=== PATIENT | female | born 1980 | race Caucasian/White ===

== ENCOUNTER 2016-07-12 05:58 | Inpatient (IN) | payer OTHER ==
[~2016-07-12] VITALS: Ht 180.3 cm; Wt 107.0 kg
[~2016-07-12 05:58] MED LIST: LEVOTHYROXINE200 MC1 PO; PRENATAL TABLE1 EAC2 PO; SYNTHROID300 MCG PO
[2016-07-12 06:23] VITALS: BP 126/74
--- NOTE | 2016-07-12 07:56 | History & Physical ---
General Information and HPI MD Statement: I have seen and personally examined ELIJAH MITCHELL and documented this H&P. The patient is a 36 year old female at39 [] weeks and [] days gestation who presented with a chief complaint of []. Multiparity and 2 previous C-sections History of Present Illness: 35-year-old 3 para 2001 at 39 weeks 2 previous C-sections once demand sterilization for repeat section care started with Dr. 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 Medical History Neurological: migraine EENT: NONE Cardiovascular: NONE Respiratory: NONE Gastrointestinal: NONE Hepatic: cholelithiasis Renal: NONE Musculoskeletal: NONE Psychiatric: NONE Endocrine: hypothyroidism Blood Disorders: NONE Cancer(s): NONE 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[employer] TROLLEY/Reproductive: NONE Surgical History Pertinent Surgical History: non-contributory, N Past Family/Social History Psychosocial History Smoking Status: Never Smoked Review of Systems Review of Systems: Negative review of systems as stated in the HPI Exam & Diagnostic Data Last 24 Hrs of Vital Signs/I&O Vital Signs Date Time Temp Pulse Resp B/P Pulse O2 O2 Flow FiO2 Ox Delivery Rate 07/12 0623 126/74 Intake & Output 07/12 0800 07/12 0000 07/11 1600 Intake Total Output Total Balance Patient 236 lb Weight Obstetric Exam Wgt Gained During : 24 pounds Pelvimetry: Untested Dilation (cm): 0 Effacement (%): 0 Station: 0 Membranes: intact Fluid: unknown Fundal Height (cm): 39 Multiple Gestation? No Contractions: None Patient for Induction? No Labs Blood Type & Rh: A positive Antibody Screen: Negative Hct/Hgb & Platelets #1: 12/14 Hct/Hgb & Platelets #2: Non- Rubella: Immune VDRL #1: Nonreactive VDRL #2: Non- HbsAg: Negative HIV #1: Unknown HIV #2 Negative 1 Hr P Group B Strep: Negative Initial Ultrasound: Normal Anatomy Ultrasound: Normal Genetic Testing: normal Last 24 Hrs of Labs/Samy: Microbiology 07/12 0614 URINE ROUT: Urine Culture - COLB Assessment/Plan As Ranked By This Provider Problem List: 1. Core Measures/Miscellaneous Venous Thromboembolism VTE Risk Factors: / VTE Contraindications: No Contraindications VTE Diagnosis: No Beta Hernan Is Beta Hernan a Home Med? No Antibiotics Is Patient on Antibiotics? No
[2016-07-13 07:54] LABS: ABSOLUTE BASOPHIL COUNT 0 /CUMM (0.0-0.2); ABSOLUTE EOSINOPHIL COUNT 0.4 /CUMM (0.0-0.7); ABSOLUTE GRANULOCYTE CT 4.9 /CUMM (1.4-6.5); ABSOLUTE LYMPH COUNT 1.7 /CUMM (1.2-3.4); ABSOLUTE MONOCYTE COUNT 0.4 /CUMM (0.10-0.60); BASOPHIL % 0.3 % (0.0-2.0); EOSINOPHIL % 4.9 % (0-5); HEMATOCRIT 26.8 % (37-47); MEAN CORPUSCULAR HGB 25.2 PG (27.0-31.0); MEAN CORPUSCULAR HGB CONC 32.7 G/DL (33.0-37.0); MEAN CORPUSCULAR VOLUME 76.9 FL (81.0-99.0); MEAN PLATELET VOLUME 8.5 FL (7.4-10.4); PLATELET COUNT 246 /CUMM (130-400); RBC DISTRIBUTION WIDTH 14.9 % (11.5-14.5); RED BLOOD CELL CT 3.48 /CUMM (4.20-5.40); WHITE BLOOD CELL COUNT 7.4 /CUMM (4.8-10.8)
--- NOTE | 2016-07-13 10:19 | PN- Post Delivery/GYN ---
Subjective Subjective: Doing well overall. Pain is well controlled with PO meds, ambulating well. Minimal lochia. Good PO intake with no N/V. Shirley was just removed this morning, decreased UOP last evening improved with IV bolus. Now much improved diuresis this morning prior to shirley removal. with no problems. Incision bandage removed this morning. Patient only complaint of generalized swelling with no pain or focalized erythema. Noted pre-op transfusion given anemia. No lightheadedness or dizziness. Review of Systems: per above Objective Last 24 Hrs of Vital Signs/I&O 97.5 58 18 110/70 97% Physical Exam: Gen: NAD Heart: RRR. S1 and S2 Lungs: CTAB Abd: Minimal expected TTP. Fundus well below umbilicus. Incision: C/D/I with jocy in place. Ext: Generalized 2+ edema. No erythema, pain or cords Current Medications: Current Medications Sig/Mo Start time Last Medication Dose Route Stop Time Status Admin Acetaminophen 650 MG Q4P PRN 07/12 08 AC PO Cefazolin Sodium 2 GM ONCE ONE 07/12 1015 DC 07/12 N/A 1 UNIT IV 07/12 1044 0740 Diphenhydramine HCl 25 MG Q6P PRN 07/12 0930 AC 07/12 IV 2150 Docusate Sodium 100 MG AT BEDTIME PRN 07/12 08 AC PO Enoxaparin Sodium 40 MG 07/12 AC 07/12 SC 1948 Ferrous Sulfate 325 MG DAILY 07/13 1030 UNVr PO Hydroxyzine HCl 50 MG AT BEDTIME NEED.. 07/13 0000 AC PO 07/16 0001 Ibuprofen 800 MG Q6P PRN 07/12 0800 AC 07/13 PO 0914 Ketorolac 30 MG Q6P PRN 07/12 1415 AC 07/13 Tromethamine IV 07/13 1414 0247 Lactated Ringer's 1,000 ML Q8H 07/12 0800 AC 07/12 IV 1626 Levothyroxine Sodium 0.2 MG AT BEDTIME 07/13 2200 UNVr PO Magnesium Hydroxide 30 ML DAILY NEEDED PRN 07/12 0800 AC PO 07/15 0801 Metoclopramide HCl 10 MG Q6P PRN 07/12 0930 AC IV Naloxone HCl 0.2 MG .Q5MIN PRN 07/12 0930 AC IV Oxycodone/ 1 TAB Q4P PRN 07/12 08 AC 07/13 Acetaminophen PO 08 Oxycodone/ 2 TAB Q4P PRN 07/12 08 AC Acetaminophen PO Oxytocin 20 UNITS Q8H 07/13 799 DC 07/12 Lactated Ringer's 1,000 ML IV 07/12 1559 0900 Senna 187 MG AT BEDTIME NEED.. 07/12 08 AC PO Last 24 Hrs of Labs/Samy: Laboratory Tests 07/13/16 0700: CBC w Diff NO MAN DIFF REQ, RBC 3.48 L, MCV 76.9 L, MCH 25.2 L, RDW 14.9 H, MPV 8.5, Gran % 66.0, Lymphocytes % 22.9, Monocytes % 5.9, Eosinophils % 4.9, Basophils % 0.3, Absolute Granulocytes 4.9, Absolute Lymphocytes 1.7, Absolute Monocytes 0.4, Absolute Eosinophils 0.4, Absolute Basophils 0, PUBS MCHC 32.7 L Assessment/Plan Assessment/Plan 36 yo female POD#1 s/p rLTCS with BTL s/p preop transfusion of 2 units of pRBC 1) POD#1 - Overall doing very well - Continue pain control PRN with PO meds - Continue to ambulate - Full diet - Continue to monitor UOP closely and ensure diuresis - Rh + 2) Hypothyroidism - On synthroid 200mcg nightly - Continue nightly medication - No acute symptoms 3) Anemia - Preop transfusion of 2 units - H/H per above - Asymptomatic - Iron PO in AM 4) Prophx - Lovenox 40 daily - Ambulation - IS encouraged Attending Review Statement Attending Statement Attending MD Statement: examined this patient, reviewed EMR data (avail), discussed with nursing
--- NOTE | 2016-07-14 09:57 | PN- Post Delivery/GYN ---
Subjective Subjective: Doing well overall. Pain is well controlled with PO meds, did have some trouble with pain control overnight, however as long as remembers to ask for medication, it does help. Ambulating well. Minimal lochia. Good PO intake with no N/V. Swelling is improved. Voiding well. + flatus, +BM. No lightheadedness or dizziness. Review of Systems: Per above Objective Last 24 Hrs of Vital Signs/I&O 97.7 71 18 120/70 98% Physical Exam: Gen: NAD Heart: RRR. S1 and S2 Lungs: CTAB Abd: Minimal expected TTP. Fundus well below umbilicus. binder in place Incision: C/D/I with jocy in place. Ext: 1+ edema in LE. No erythema, pain or cords Current Medications: Current Medications Sig/Mo Start time Last Medication Dose Route Stop Time Status Admin Acetaminophen 650 MG Q4P PRN 07/12 08 AC PO Diphenhydramine HCl 50 MG AT BEDTIME NEED.. 07/13 2345 AC 07/14 PO 0022 Diphenhydramine HCl 25 MG Q6P PRN 07/12 0930 DC 07/12 IV 2150 Docusate Sodium 100 MG .STK-MED ONE 07/13 2100 DC PO 07/13 2101 Docusate Sodium 100 MG AT BEDTIME PRN 07/12 08 AC 07/13 PO 210 Enoxaparin Sodium 40 MG 07/12 AC 07/13 SC 2059 Ferrous Sulfate 325 MG DAILY 07/13 1030 AC 07/14 PO 0955 Hydroxyzine HCl 50 MG AT BEDTIME NEED.. 07/13 0000 DC PO 07/16 0001 Ibuprofen 800 MG .STK-MED ONE 07/13 2347 DC PO 07/13 2348 Ibuprofen 800 MG .STK-MED ONE 07/13 1811 DC PO 07/13 1812 Ibuprofen 800 MG Q6P PRN 07/12 0800 AC 07/14 PO 0631 Ketorolac 30 MG Q6P PRN 07/12 1415 DC 07/13 Tromethamine IV 07/13 1414 0247 Lactated Ringer's 1,000 ML Q8H 07/12 0800 DC 07/12 IV 1626 Levothyroxine Sodium 0.2 MG AT BEDTIME 07/13 2200 AC 07/13 PO 2058 Magnesium Hydroxide 30 ML DAILY NEEDED PRN 07/13 799 AC PO 07/15 0801 Metoclopramide HCl 10 MG Q6P PRN 07/12 0830 AC IV Naloxone HCl 0.2 MG .Q5MIN PRN 07/12 929 AC IV Oxycodone/ 1 TAB Q4P PRN 07/13 799 AC 07/13 Acetaminophen PO 08 Oxycodone/ 2 TAB Q4P PRN 07/13 799 AC 07/14 Acetaminophen PO 06 Senna 187 MG AT BEDTIME NEED.. 07/13 799 AC PO Assessment/Plan Assessment/Plan 36 yo female POD#2 s/p rLTCS with BTL s/p preop transfusion of 2 units of pRBC 1) POD#2 - Overall doing very well - Continue pain control PRN with PO meds. Encouraged to keep on top of taking medications as this is likely reason for breakthrough pain last night - Continue to ambulate - Full diet - Continue to monitor UOP and vitals - Rh + - Continue encouraging 2) Hypothyroidism ([facility]'s) - On synthroid 200mcg nightly - No acute symptoms 3) Anemia - Preop transfusion of 2 units - Asymptomatic - Iron PO daily (in AM) 4) Prophx - Lovenox 40 daily - Ambulation - IS encouraged Anticipate discharge on POD#3 Attending MD Review Statement Attending Statement Attending MD Statement: examined this patient, discussed with family, discussed with nursing
[2016-07-15] MEDS ORDERED: PERCOCET 5-3251 EACH PO (11:12)
[2016-07-15] MEDS ORDERED: FERROUS SULFAT325 M2 PO (11:12)
[2016-07-15] MEDS ORDERED: IBUPROFEN800 M1 PO (11:12)
--- NOTE | 2016-08-08 14:10 | Surgical Discharge Summary ---
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 Kyrgyz Review of Systems: -13 point review of systems is stated in the HPI Hospital Course Course Attending Physician: OSCAR TEE MD Primary Care Physician: SONU SIMMS MD Hospital Course: Patient presents to the hospital for a section she underwent a repeat low flap transverse section and bilateral tubal ligation I she tolerated anesthesia well responded well with her the first postoperative day on the third postoperative day she had a bowel movement she remained afebrile and tolerating oral pain medication and she was discharged home following physical exam pleasant white female HEENT anicteric lungs clear abdomen soft nontender incision clean dry and intact extremities negative edema minimal lochia Allergies: Coded Allergies: No Known Allergies (04/07/16) Disposition Summary Disposition Principal Diagnosis: Size post repeat section Additional Diagnosis: Status post tubal ligation Discharge Disposition: home or self care Discharge Instructions General Discharge Information Code Status: Full Code Patient's Diet: Regular diet Patient's Activity: Pelvic rest for 6 weeks no heavy lifting for 6 weeks with driving for 2 weeks Follow-Up Instructions/Appts: return visit in one week my office in 2 weeks Medications at Discharge Discharge Medications: Continue taking these medications: Levothyroxine Sodium (Levothyroxine Sodium) 200 MCG TABLET 1 Tablet ORAL DAILY Qty = 30 Comments: PER PT Vit No.130/Iron/FA ( Tablet) 27 MG IRON-800 MCG TABLET 1 Tablet ORAL DAILY Comments: PER PT Start taking the following new medications: Ferrous Sulfate (Ferrous Sulfate) 325 MG (65 MG IRON) TABLET.DR 325 Milligram ORAL DAILY Qty = 60 No Refills Comments: Last Taken:07/15/16 Time:1145 Ibuprofen (Ibuprofen) 800 MG TABLET 800 Milligram ORAL EVERY SIX HOURS NEEDED as needed for UTERINE CRAMPING Qty = 60 No Refills Comments: Last Taken:07/15/16 Time:1145 Oxycodone HCl/Acetaminophen (Percocet 5-325 MG Tablet) 5 MG-325 MG TABLET 1 Tablet ORAL EVERY 4 HOURS NEEDED as needed for PAIN SCALE 4-6 (MODERATE ) Qty = 30 No Refills Comments: Last Taken:07/15/16 Time:1147
== END 2016-07-15 13:00 | DRG 540 ==
LOC: GNO 05:58
PROVIDERS: ADMIT Specialist
PROC: 0UB70ZZ Excision of Bilateral Fallopian Tubes, Open Approach (ICD-10-PCS; principal; 2016-07-12)
PROC: 10D00Z1 Extraction of Products of Conception, Low, Open Approach (ICD-10-PCS; principal; 2016-07-12)
PROC: 30233N1 Transfusion of Nonautologous Red Blood Cells into Peripheral Vein, Percutaneous Approach (ICD-10-PCS; 2016-07-12)
DX: O34.211 Maternal care for low transverse scar from previous cesarean delivery (principal); N85.8 Other specified noninflammatory disorders of uterus; Z3A.39 39 weeks gestation of pregnancy; Z37.0 Single live birth; Z30.2 Encounter for sterilization; O99.284 Endocrine, nutritional and metabolic diseases complicating childbirth; E03.9 Hypothyroidism, unspecified; O99.02 Anemia complicating childbirth
CPT/HCPCS: GNOS; 81003; 86920; 87086; 88302; 88307; J0690; J1200; J1650; J1885; J2405; J7120; P9016

== ENCOUNTER 2017-04-30 20:25 | Emergency (ER) | payer OTHER ==
[~2017-04-30] VITALS: Ht 180.3 cm; Wt 99.8 kg
[~2017-04-30 20:25] MED LIST changes: +FERROUS SULFAT325 M2 PO; +IBUPROFEN800 M1 PO; +PERCOCET 5-3251 EACH PO
[2017-04-30 20:32] VITALS: BP 105/71
--- NOTE | 2017-04-30 20:55 | ED EYE COMPLAINT ---
History of Present Illness General Chief Complaint: Eye Problems Stated Complaint: "DAUGHTER SCRATCHED MY EYE" Source: patient, old records Exam Limitations: no limitations Vital Signs & Intake/Output Vital Signs & Intake/Output Vital Signs Date Time Temp Pulse Resp B/P B/P Pulse O2 O2 Flow FiO2 Mean Ox Delivery Rate 04/30 2049 Room Air 04/30 2031 97.0 84 18 105/71 100 Allergies Coded Allergies: No Known Allergies (04/07/16) Reconcile Medications Ferrous Sulfate 325 MG (65 MG IRON) TABLET.DR 325 MG PO DAILY ANEMIA Ibuprofen 800 MG TABLET 800 MG PO Q6P PRN UTERINE CRAMPING Ketorolac Tromethamine (Acular) 0.5 % DROPS 1 GTT OPH 4 TIMES/DAY PRN pain Levothyroxine Sodium 200 MCG TABLET 1 TAB PO DAILY THYROID (Reported) Ondansetron (Zofran Odt) 4 MG TAB.RAPDIS 1 TAB SL TID PRN nausea Oxycodone HCl/Acetaminophen (Percocet 5-325 MG Tablet) 5 MG-325 MG TABLET 1 TAB PO Q4P PRN PAIN SCALE 4-6 (MODERATE) Polytrim (Polytrim Eye Drops) 10,000 UNIT-1 MG/ML DROPS 1 GTT OPH Q6 corneal abrasion Vit No.130/Iron/FA ( Tablet) 27 MG IRON-800 MCG TABLET 1 TAB PO DAILY (Reported) Sumatriptan Succinate (Imitrex) 50 MG TABLET 1 TAB PO AD PRN headache Triage Note: PT TO ER C/C RIGHT EYE PAIN, VISION CHANGES, TEARING X 5 HRS S/P DAUGHTER SCRATCHING HER IN EYE. Triage Nurses Notes Reviewed? yes Onset: Abrupt Duration: hour(s): (4), constant Timing: recent history Injury Environment: home Severity: severe Severity Numbers: 10 No Modifying Factors: none Right Eye Associated Symptoms: burning, itching, pain, sensitivity to light : No Patient currently breastfeeds: Yes HPI: 36-year-old female with history of hypothyroid presents complaining of severe aching throbbing pain to her right eye after her 9-month-old daughter scratch or an MRI while they were taking self ease. She does not wear glasses or contacts. Pain is worse with bright lights. She denies any left eye trauma. No pain with movement of her eyes there is no other facial trauma. She states the pain in her eye is causing her to have a migraine and is requesting a shot of Imitrex which she has had in the past. She reports some blurry vision and tearing however denies vision loss. (Reg Bhatti) Past History Travel History Traveled to [place] past 21 day No Medical History Any Pertinent Medical History? 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 No (Reg Bhatti) Review of Systems Review of Systems Constitutional: Reports: see HPI. All Other Systems: Reviewed and Negative Comments Review of systems: See HPI, All other systems negative. Constitutional, no chills no fever, HEENT: no sore throat no congestion Cardiovascular: No chest pain Skin: no rashes, no change in skin Respiratory: No dyspnea no cough no sputum GI: No nausea no vomiting, Muscle skeletal: No joint pain, no back pain, no neck pain, Neurologic: headache Heme/endocrine: No bruising (Reg Bhatti) Physical Exam General Appearance: well developed/nourished, no apparent distress, alert General Inspection: normal inspection Eyelid: normal inspection Conjunctiva/Sclera: normal inspection Cornea: normal inspection EOM: intact Pupil: normal accommodation, normal pupil, PERRL General Inspection: normal inspection Eyelid: normal inspection, everted for exam Conjunctiva/Sclera: normal inspection Cornea: examined w/fluorescein, abrasion EOM: intact Pupil: normal accommodation, normal pupil, PERRL Physical Exam Comments: Well-developed well-nourished patient in no apparent distress. HEENT: Atraumatic, extraocular motion intact Neck: Supple, FROM Back: FROM Respiratory: No respiratory distress. Patient speaking in full complete sentences. Extremities: full range of motion Neuro: awake, alert, and oriented to person, place and time. There were no obvious focal neurologic abnormalities. Skin: Warm & dry;No appreciable rash on exposed skin Psych: Mood affect normal, normal memory normal judgment. (Reg Bhatti) Progress Differential Diagnosis: corneal abrasion, corneal foreign body, conjunctivitis Plan of Care: Current Medications Sig/Mo Start time Last Medication Dose Stop Time Status Admin Sumatriptan Succinate 6 MG ONE ONE 04/30 2114 AC (Imitrex 6MG Per 04/30 2115 0.5ML Inj) The eye was anesthetized with tetracaine with immediate resolution of symptoms using fluoroscopy seen an abrasion was noted to the cornea of the right eye the eyelids were reverted there is no visualized foreign body. I discussed the patient however the possibility of a foreign body not seen on examination still exist advise close follow-up with her sales broker tomorrow discussed with her plan of care we will give her a shot of Imitrex and sent her home with Acular and Polytrim eyedrops Imitrex and Zofran return precautions were discussed at length she feels comfortable plan. (Reg Bhatti) Departure Departure Time of Disposition: 2110 Disposition: HOME OR SELF CARE Condition: Stable Clinical Impression Primary Impression: Corneal abrasion Qualifiers: Encounter type: initial encounter Laterality: right Qualified Code: S05.01XA - Injury of conjunctiva and corneal abrasion without foreign body, right eye, initial encounter Referrals: Lyudmila KOWALSKI,Radha Goodson (PCP/Family) Additional Instructions: Follow up with your sales broker tomorrow. acular for pain, polytrim as directed. imitrex for headaches, zofran for nausea Departure Forms: Customer Survey General Discharge Information Prescriptions: Current Visit Scripts Sumatriptan Succinate (Imitrex) 1 TAB PO AD PRN headache #9 TAB Ondansetron (Zofran Odt) 1 TAB SL TID PRN nausea #10 TAB Ketorolac Tromethamine (Acular) 1 GTT OPH 4 TIMES/DAY PRN pain #5 ML Polytrim (Polytrim Eye Drops) 1 GTT OPH Q6 #10 ML (Reg Bhatti) PA/GLOVE PRESSER Co-Sign Statement Statement: ED Attending supervision documentation- I saw and evaluated the patient. I have also reviewed all the pertinent lab results and diagnostic results. I agree with the findings and the plan of care as documented in the PA's/GLOVE PRESSER's documentation. x I have reviewed the ED Record and agree with the PA's/GLOVE PRESSER's documentation. [] Additions or exceptions (if any) to the PAs/GLOVE PRESSER's note and plan are summarized below: [] (Oneida KOWALSKI,Avinash)
[2017-04-30] MEDS ORDERED: IMITREX50 M1 PO (21:14)
[2017-04-30] MEDS ORDERED: POLYTRIM EYE DR10 ML OPH (21:14)
[2017-04-30] MEDS ORDERED: ACULAR5 ML OPH (21:14)
[2017-04-30] MEDS ORDERED: ZOFRAN ODT4 M1 SL (21:14)
== END 2017-04-30 21:29 ==
LOC: ERH 20:25
DX: S05.01XA Injury of conjunctiva and corneal abrasion without foreign body, right eye, initial encounter (principal); W51.XXXA Accidental striking against or bumped into by another person, initial encounter; Y93.89 Activity, other specified; Y92.009 Unspecified place in unspecified non-institutional (private) residence as the place of occurrence of the external cause
CPT/HCPCS: 96372; J3030

== ENCOUNTER 2017-11-03 19:48 | Emergency (ER) | payer OTHER ==
[~2017-11-03] VITALS: Ht 180.3 cm; Wt 90.0 kg
[~2017-11-03 19:48] MED LIST changes: +ACULAR5 ML OPH; +IMITREX50 M1 PO; +POLYTRIM EYE DR10 ML OPH; +ZOFRAN ODT4 M1 SL
[2017-11-03 19:53] VITALS: BP 117/74
[2017-11-04] MEDS ORDERED: SYNTHROID50 MCG PO (11:48)
[2017-11-04] MEDS ORDERED: PERCOCET 5-3251 EACH PO ×2 (13:10→14:15)
[2017-11-04] MEDS ORDERED: VIBRAMYCIN100 MG PO ×2 (13:10→14:15)
[2017-11-04] MEDS ORDERED: ZOFRAN4 M2 PO ×2 (13:10→14:15)
== END 2017-11-03 21:46 | disposition admitted as inpatient to this hospital (09) ==
LOC: ERH 19:48
DX: R10.31 Right lower quadrant pain (principal)
CPT/HCPCS: J0131; J2405

== ENCOUNTER 2017-11-04 08:40 | Emergency (ER) | payer OTHER ==
[~2017-11-04] VITALS: Ht 180.3 cm; Wt 89.8 kg
--- NOTE | 2017-11-04 08:57 | ED GENERAL ADULT ---
History of Present Illness General Chief Complaint: Abdominal Pain/Flank Pain Stated Complaint: ABD PAIN Source: patient Exam Limitations: no limitations Vital Signs & Intake/Output Vital Signs & Intake/Output Vital Signs Date Time Temp Pulse Resp B/P B/P Pulse O2 O2 Flow FiO2 Mean Ox Delivery Rate 11/04 1141 97.8 58 18 126/60 100 Room Air Room Air 11/04 0842 96.2 67 18 122/67 98 Room Air Allergies Coded Allergies: No Known Allergies (04/07/16) Reconcile Medications Doxycycline Hyclate (Vibramycin) 100 MG CAPSULE 1 CAP PO BID CERVICITIS Levothyroxine Sodium 200 MCG TABLET 1 TAB PO DAILY AC THYROID (Reported) Levothyroxine Sodium (Synthroid) 50 MCG TABLET 1 TAB PO DAILY AC THYYROID ( Reported) Ondansetron HCl (Zofran) 4 MG TABLET 1 TAB PO Q6-8P NAUSEA Oxycodone HCl/Acetaminophen (Percocet 5-325 MG Tablet) 5 MG-325 MG TABLET 1 TAB PO BID PAIN Triage Note: 37 YO FEAMLE TO TRIAGE FROM URGENT CARE FOR R/O APPY. PT REPORTS SHE HAS HEEB HAVING RLQ PAIN FOR ABOUT A WEEK AND THE PAIN IS NOT CONSISTENT AND GETTING WROSE IN NATURE. REPORTS PAIN OCCASIONALLY RADAITES TO UMBILICUS AREA. DENIES NVD, AFEBRILE. Triage Nurses Notes Reviewed? yes Onset: Abrupt Duration: day(s): Timing: recent history : No Patient currently breastfeeds: No HPI: 11/04/17 8:52 AM 37-year-old female presents to the emergency department with gradual onset of right lower quadrant pain. She states she has progressive onset of severe right lower quadrant pain. She has associated nausea and anorexia. No fever. She was seen in urgent care center and referred to rule out appendicitis. She has a past surgical history of , tubal ligation, and cholecystectomy. She denies any allergies. Past History Travel History Traveled to [place] past 21 day No Medical History Any Pertinent Medical History? see below for history Neurological: migraine EENT: NONE Cardiovascular: NONE Respiratory: NONE Gastrointestinal: NONE Hepatic: cholelithiasis Renal: NONE Musculoskeletal: NONE Psychiatric: NONE Endocrine: hypothyroidism Blood Disorders: NONE Cancer(s): NONE AURICULAR THERAPIST/Reproductive: NONE Surgical History Surgical History: non-contributory, N Psychosocial History What is your primary language Hebrew Tobacco Use: Never used Family History Hx Contributory? No Review of Systems Review of Systems Constitutional: Denies: fever. EENTM: Reports: no symptoms. Respiratory: Denies: short of breath. Cardiovascular: Denies: chest pain. GI: Reports: abdominal pain, nausea. Genitourinary: Reports: no symptoms. Musculoskeletal: Reports: no symptoms. Skin: Reports: no symptoms. Neurological/Psychological: Reports: no symptoms. Hematologic/Endocrine: Reports: no symptoms. Immunologic/Allergic: Reports: no symptoms. Physical Exam Physical Exam General Appearance: well developed/nourished, awake, anxious, moderate distress Head: atraumatic, normal appearance Eyes: Bilateral: normal appearance, PERRL, EOMI. Ears, Nose, Throat: normal pharynx, normal ENT inspection, hearing grossly normal Neck: normal inspection, supple, full range of motion Respiratory: normal breath sounds, chest non-tender, no respiratory distress Cardiovascular: regular rate/rhythm Peripheral Pulses: 4+ radial (R), 4+ radial (L) Gastrointestinal: soft, tenderness (RLQ) Back: normal range of motion Extremities: no edema Neurologic/Psych: no motor/sensory deficits, awake, alert, oriented x 3 Skin: intact, normal color, warm/dry Core Measures ACS in differential dx? No CVA/TIA Diagnosis: No Sepsis Present: No Sepsis Focused Exam Completed? No Progress Differential Diagnoses I considered the following diagnoses in my evaluation of the patient: [ Appendicitis, ectopic , ovarian torsion] Plan of Care: Orders Procedure Date/time Status Lab Add-on Test 11/04 1730 Active Add-on Test (ER Only) 11/04 1306 Active CHLAMYDIA-GC DNA PROBE 11/04 08 Active URINE 11/04 0857 Complete URINALYSIS 11/04 0857 Complete HUMAN BETA HCG SCREEN 11/04 08 Complete COMPREHENSIVE METABOLIC PANEL 11/04 08 Complete CBC WITHOUT DIFFERENTIAL 11/04 08 Complete Current Medications Sig/Mo Start time Last Medication Dose Stop Time Status Admin Ketorolac 30 MG ONCE ONE 11/04 1330 CAN Tromethamine 11/04 1331 (Toradol) Ceftriaxone Sodium 0 .STK-MED ONE 11/04 1320 CAN (Rocephin) Ondansetron HCl 0 .STK-MED ONE 11/04 1319 CAN (Zofran) Ceftriaxone Sodium 1,000 MG ONCE ONE 11/04 1315 CAN (Rocephin) 11/04 1316 Ondansetron HCl 4 MG ONCE ONE 11/04 1315 CAN (Zofran) 11/04 1316 Laboratory Tests 11/04/17 0932: Urine Color YEL, Urine Clarity CLEAR, Urine pH 6.0, Ur Specific [place] 1.010, Urine Protein NEG, Urine Ketones NEG, Urine Nitrite NEG, Urine Bilirubin NEG, Urine Urobilinogen 0.2, Ur Leukocyte Esterase NEG, Ur Microscopic EXAM NOT REQUIRED, Urine Hemoglobin NEG, Urine Glucose NEG, Urine Test NEGATIVE 11/04/17 0858: Anion Gap 10, Estimated GFR > 60, BUN/Creatinine Ratio 30.0 H, Glucose 95, Calcium 9.5, Total Bilirubin 0.4, AST 15, ALT 20, Alkaline Phosphatase 40, Total Protein 7.0, Albumin 4.1, Globulin 2.9, Albumin/Globulin Ratio 1.4, Total Beta HCG NEGATIVE, CBC w Diff NO MAN DIFF REQ, RBC 4.42, MCV 85.7, MCH 29.1, MCHC 33.9, RDW 13.8, MPV 8.0, Gran % 48.8, Lymphocytes % 36.3, Monocytes % 8.0, Eosinophils % 6.3 H, Basophils % 0.6, Absolute Granulocytes 2.4, Absolute Lymphocytes 1.8, Absolute Monocytes 0.4, Absolute Eosinophils 0.3, Absolute Basophils 0 Microbiology 11/04 856 URINE ROUT: GC DNA Probe - RECD 11/04 856 URINE ROUT: Chlamydia DNA Probe (LUCIUS) - RECD Patient was treated with IV Tylenol. CT scan and labs were ordered. Initial ED EKG: none Departure Departure Disposition: STILL A PATIENT Condition: Stable Clinical Impression Primary Impression: Abdominal pain Referrals: Lyudmila KOWALSKI,Radha Goodson (PCP/Family) Departure Forms: Customer Survey General Discharge Information Prescriptions: Current Visit Scripts Doxycycline Hyclate (Vibramycin) 1 CAP PO BID #20 CAP Ondansetron HCl (Zofran) 1 TAB PO Q6-8P #5 TAB Oxycodone HCl/Acetaminophen (Percocet 5-325 MG Tablet) 1 TAB PO BID #[address] scan unremarkable. Labs unremarkable. She does admit to recent painful sex.she said last time she tried to have intercourse it was painful . Urine GC and chlamydia were added on. Percocet for pain and Zofran, and Vibramycin. She will follow-up with her prism measurer this week\ CT findings were reviewed with patient including enlarged spleen ELIJAH MITCHELL PRESENT AGE: 37 PATIENT ACCOUNT NO: [id number] : 78 LOCATION: [facility] ORDERING PHYSICIAN: Sarbjit Stone DO SERVICE DATE: 11/04/17 EXAM TYPE: CAT - CT ABD & PELVIS W IV CONTRAST EXAMINATION: CT ABD PELVIS W IV CONTRAST CLINICAL INFORMATION: Reason for Study:<Right lower quadrant pain. COMPARISON: CT chest from 2016 TECHNIQUE: Multidetector volumetric imaging was performed from the superior aspect of the liver through the pubic symphysis 95 mL Optiray 320 injected Sagittal and coronal reformatted images were obtained on the technologist's workstation. DLP: 449 mGy-cm FINDINGS: LOWER THORAX: Partially calcified subcentimeter nodule at LEFT base unchanged. Lung bases otherwise clear. HEPATOBILIARY: No focal hepatic lesions. No biliary ductal dilatation. GALLBLADDER: Gallbladder has been removed. SPLEEN: Spleen is borderline enlarged measuring 13.1 x 7.2 cm. No focal splenic lesion. PANCREAS: No focal mass or ductal dilatation. STOMACH AND GASTROINTESTINAL TRACT: Stomach is grossly unremarkable. There is no bowel distention or thickening. No CT evidence of appendicitis. Normal-size appendix identified in the RIGHT lower quadrant. Santa image ADRENALS: No adrenal nodules. KIDNEYS/URETERS: No hydronephrosis, stones or solid mass lesions. URINARY BLADDER: Unremarkable PELVIC VISCERA: Unremarkable PERITONEUM: No free air or fluid. LYMPH NODES: No lymphadenopathy. VASCULAR:Abdominal aorta normal in size, no aneurysm found. BONES, ABDOMINAL WALL AND SOFT TISSUES: Age-appropriate changes of the spine and skeletal system, no destructive osteolytic or osteosclerotic bone lesion found IMPRESSION: 1. No CT evidence of acute appendicitis. Normal-size appendix identified in the RIGHT lower quadrant. 2. Status post cholecystectomy. 3. Spleen mildly enlarged 13.1 cm. 4. Stable partially calcified subcentimeter nodule at LEFT lower lobe unchanged from the CT of March 2016. DICTATED BY: Aric KOWALSKI,Quinten DATE/TIME DICTATED:11/04/171058 DEVELOPMENT OFFICER:JORGE DATE/TIME TRANSCRIBED:11/04/171058 CONFIDENTIAL, DO NOT COPY WITHOUT APPROPRIATE AUTHORIZATION. <Electronically signed in Other Vendor System> SIGNED BY: Aric KOWALSKI,Quinten 1111 Critical Care Note Critical Care Note Critical Care Time: non-applicable
[2017-11-04 09:06] LABS: ABSOLUTE BASOPHIL COUNT 0 /CUMM (0.0-0.2); ABSOLUTE EOSINOPHIL COUNT 0.3 /CUMM (0.0-0.7); ABSOLUTE GRANULOCYTE CT 2.4 /CUMM (1.4-6.5); ABSOLUTE LYMPH COUNT 1.8 /CUMM (1.2-3.4); ABSOLUTE MONOCYTE COUNT 0.4 /CUMM (0.10-0.60); BASOPHIL % 0.6 % (0.0-2.0); EOSINOPHIL % 6.3 % (0-5); GRANULOCYTE % 48.8 % (42.2-75.2); HEMATOCRIT 37.9 % (37-47); MEAN CORPUSCULAR HGB 29.1 PG (27.0-31.0); MEAN CORPUSCULAR HGB CONC 33.9 G/DL (33.0-37.0); MEAN CORPUSCULAR VOLUME 85.7 FL (81.0-99.0); PLATELET COUNT 324 /CUMM (130-400); RBC DISTRIBUTION WIDTH 13.8 % (11.5-14.5); RED BLOOD CELL CT 4.42 /CUMM (4.20-5.40); WHITE BLOOD CELL COUNT 4.8 /CUMM (4.8-10.8)
--- NOTE | 2017-11-04 11:10 | CT SCAN REPORT ---
EXAMINATION: CT ABD PELVIS W IV CONTRAST CLINICAL INFORMATION: Reason for Study:<Right lower quadrant pain. COMPARISON: CT chest from 2016 TECHNIQUE: Multidetector volumetric imaging was performed from the superior aspect of the liver through the pubic symphysis 95 mL Optiray 320 injected Sagittal and coronal reformatted images were obtained on the technologist's workstation. DLP: 449 mGy-cm FINDINGS: LOWER THORAX: Partially calcified subcentimeter nodule at LEFT base unchanged. Lung bases otherwise clear. HEPATOBILIARY: No focal hepatic lesions. No biliary ductal dilatation. GALLBLADDER: Gallbladder has been removed. SPLEEN: Spleen is borderline enlarged measuring 13.1 x 7.2 cm. No focal splenic lesion. PANCREAS: No focal mass or ductal dilatation. STOMACH AND GASTROINTESTINAL TRACT: Stomach is grossly unremarkable. There is no bowel distention or thickening. No CT evidence of appendicitis. Normal-size appendix identified in the RIGHT lower quadrant. Santa image ADRENALS: No adrenal nodules. KIDNEYS/URETERS: No hydronephrosis, stones or solid mass lesions. URINARY BLADDER: Unremarkable PELVIC VISCERA: Unremarkable PERITONEUM: No free air or fluid. LYMPH NODES: No lymphadenopathy. VASCULAR:Abdominal aorta normal in size, no aneurysm found. BONES, ABDOMINAL WALL AND SOFT TISSUES: Age-appropriate changes of the spine and skeletal system, no destructive osteolytic or osteosclerotic bone lesion found IMPRESSION: 1. No CT evidence of acute appendicitis. Normal-size appendix identified in the RIGHT lower quadrant. 2. Status post cholecystectomy. 3. Spleen mildly enlarged 13.1 cm. 4. Stable partially calcified subcentimeter nodule at LEFT lower lobe unchanged from the CT of March 2016.
[2017-11-04 11:41] VITALS: BP 126/60
[2017-11-04] MEDS ORDERED: SYNTHROID50 MCG PO (11:48)
[2017-11-04] MEDS ORDERED: ZOFRAN4 M2 PO ×2 (13:10→14:15)
[2017-11-04] MEDS ORDERED: VIBRAMYCIN100 MG PO ×2 (13:10→14:15)
[2017-11-04] MEDS ORDERED: PERCOCET 5-3251 EACH PO ×2 (13:10→14:15)
== END 2017-11-04 13:29 ==
LOC: ERH 08:40
PROVIDERS: Emergency Medicine
DX: R10.31 Right lower quadrant pain (principal)
CPT/HCPCS: 74177; 81003; 81025; 87491; 87591; 96374; 96375; J0696; J2405